=== PATIENT | male | born 1945 | race Caucasian/White ===

== ENCOUNTER 2016-05-15 05:23 | Emergency (ER) | payer MEDICARE, OTHER ==
[2016-05-15] MEDS ORDERED: DEXAMETHASONE 10 MG/ML VIAL PO STA (07:39)
[2016-05-15] MEDS ORDERED: IPRATROPIUM/ALBUTEROL 3 ML NEB INH STA (07:39)
[2016-05-15] MEDS ORDERED: DEXAMETHASONE 10 MG/ML VIAL ONE (07:52)
[2016-05-15] MEDS ORDERED: CHERRY SYRUP 10 ML UDC PO ONE (07:52)
[2016-05-15] MEDS ORDERED: IPRATROPIUM/ALBUTEROL 3 ML NEB INH ONE (07:53)
[2016-05-15] MEDS ORDERED: cefTRIAXone 1 GM in SODIUM CHLORIDE 0.9% MINIBAG 100 ML IV STA (09:01)
[2016-05-15] MEDS ORDERED: cefTRIAXone 1 GM VIAL ONE (09:11)
== END 2016-05-15 11:44 | disposition home or self-care (01) ==
DX: H66.001 Acute suppurative otitis media without spontaneous rupture of ear drum, right ear (principal); R06.02 Shortness of breath; I25.10 Atherosclerotic heart disease of native coronary artery without angina pectoris; I25.2 Old myocardial infarction; Z95.5 Presence of coronary angioplasty implant and graft; Z79.02 Long term (current) use of antithrombotics/antiplatelets
CPT/HCPCS: 36415; 71020; 80053; 83690; 83880; 84484; 85025; 93005; 94640; 96374; 99283; 99284; A9270; J7620

== ENCOUNTER 2016-09-20 07:54 | Outpatient (CLI) | payer MEDICARE, OTHER ==
[2016-09-20 12:06] LABS: BASOPHILS % (AUTO) 0.7 %; EOSINOPHILS # (AUTO) 0.2 10^3/uL (0.0-0.7); EOSINOPHILS % (AUTO) 4.9 %; HCT - HEMATOCRIT 43.6 % (42.0-52.0); LYMPHOCYTES # (AUTO) 0.9 10^3/uL (1.5-3.5); MEAN CORPUSCULAR HEMOGLOBIN 33.7 pg (27.0-31.0); MEAN CORPUSCULAR HGB CONC 34.4 g/dL (32.0-36.0); MEAN CORPUSCULAR VOLUME 98.2 fL (80.0-94.0); MEAN PLATELET VOLUME 10.6 fL (7.4-11.4); MONOCYTES # (AUTO) 0.6 10^3/uL (0.0-1.0); MONOCYTES % (AUTO) 14.2 %; NEUTROPHILS # (AUTO) 2.5 10^3/uL (1.5-6.6); NEUTROPHILS % (AUTO) 59.2 %; NUCLEATED RED BLOOD CELLS AUTO 0.1 /100WBC; RED BLOOD COUNT 4.44 10^6/uL (4.70-6.10); RED CELL DISTRIBUTION WIDTH 12.7 % (12.0-15.0); UNCORRECTED WHITE BLOOD COUNT 4.3 x10^3/uL; WHITE BLOOD COUNT 4.3 x10^3/uL (4.8-10.8)
[2016-09-20 12:26] LABS: ALBUMIN/GLOBULIN RATIO 1.3 (1.0-2.2); BILIRUBIN,TOTAL 0.7 mg/dL (0.2-1.0); BUN - BLOOD UREA NITROGEN 21 mg/dL (6-20); CARBON DIOXIDE - CO2 27 mmol/L (21-32); CHLORIDE 102 mmol/L (101-111); CHOL/HDL RATIO 3.3 (<5.0); CHOLESTEROL 140 mg/dL; CREATININE 0.9 mg/dL (0.6-1.2); GFR - MDRD 83 (>89); GLUCOSE 85 mg/dL (70-100); HDL CHOLESTEROL 43 mg/dL; SODIUM 136 mmol/L (135-145); TOTAL PROTEIN 6.8 g/dL (6.7-8.2); TRIGLYCERIDES 62 mg/dL; VLDL CHOLESTEROL 12 mg/dL
== END 2016-09-20 07:55 | disposition home or self-care (01) ==
LOC: LAB.F 07:54
PROVIDERS: ATTEND Internal Medicine
DX: I25.10 Atherosclerotic heart disease of native coronary artery without angina pectoris (principal); E78.2 Mixed hyperlipidemia; Z79.899 Other long term (current) drug therapy
CPT/HCPCS: 36415; 80053; 80061; 85025

== ENCOUNTER 2017-03-21 08:14 | Outpatient (CLI) | payer MEDICARE, OTHER | END 2017-03-21 08:15 | disposition home or self-care (01) | LOC: DI 08:14 | PROVIDERS: ATTEND Internal Medicine | DX: I25.5 Ischemic cardiomyopathy (principal); I25.2 Old myocardial infarction; I51.7 Cardiomegaly | CPT/HCPCS: 93306 ==

== ENCOUNTER 2017-08-30 09:30 | Outpatient (CLI) | payer MEDICARE, OTHER | END 2017-08-30 09:31 | disposition home or self-care (01) | LOC: DI 09:30 | PROVIDERS: ATTEND Internal Medicine | DX: I25.2 Old myocardial infarction (principal); I25.5 Ischemic cardiomyopathy | CPT/HCPCS: 93306 ==

== ENCOUNTER 2017-10-14 07:41 | Outpatient (CLI) | payer MEDICARE, OTHER ==
[2017-10-14 11:30] LABS: BASOPHILS % (AUTO) 0.9 %; EOSINOPHILS # (AUTO) 0.2 10^3/uL (0.0-0.7); EOSINOPHILS % (AUTO) 5.3 %; HGB - HEMOGLOBIN 14.5 g/dL (14.0-18.0); LYMPHOCYTES # (AUTO) 1.1 10^3/uL (1.5-3.5); MEAN CORPUSCULAR HEMOGLOBIN 33.4 pg (27.0-31.0); MEAN CORPUSCULAR HGB CONC 33.6 g/dL (32.0-36.0); MEAN CORPUSCULAR VOLUME 99.5 fL (80.0-94.0); MEAN PLATELET VOLUME 10.2 fL (7.4-11.4); MONOCYTES # (AUTO) 0.5 10^3/uL (0.0-1.0); MONOCYTES % (AUTO) 12.2 %; NEUTROPHILS # (AUTO) 2.5 10^3/uL (1.5-6.6); NEUTROPHILS % (AUTO) 56.6 %; PLT - PLATELET COUNT 172 10^3/uL (130-450); RED BLOOD COUNT 4.33 10^6/uL (4.70-6.10); WHITE BLOOD COUNT 4.5 x10^3/uL (4.8-10.8)
[2017-10-14 11:51] LABS: ALBUMIN 3.8 g/dL (3.2-5.5); ALBUMIN/GLOBULIN RATIO 1.5 (1.0-2.2); ALKALINE PHOSPHATASE 55 IU/L (42-121); ALT ALANINE AMINOTRANSFERASE 17 IU/L (10-60); AST ASPARTATE AMINOTRANSFERASE 19 IU/L (10-42); BILIRUBIN,TOTAL 0.9 mg/dL (0.2-1.0); BUN - BLOOD UREA NITROGEN 16 mg/dL (6-20); CALCIUM 8.9 mg/dL (8.5-10.3); CARBON DIOXIDE - CO2 30 mmol/L (21-32); CHLORIDE 100 mmol/L (101-111); CHOL/HDL RATIO 3.2 (<5.0); CHOLESTEROL 157 mg/dL; GFR - MDRD 73 (>89); GLUCOSE 88 mg/dL (70-100); HDL CHOLESTEROL 49 mg/dL; LDL CHOLESTEROL,CALCULATED 97 mg/dL; SODIUM 133 mmol/L (135-145); TOTAL PROTEIN 6.4 g/dL (6.7-8.2); VLDL CHOLESTEROL 11 mg/dL
== END 2017-10-14 07:42 | disposition home or self-care (01) ==
LOC: LAB.F 07:41
PROVIDERS: ATTEND Internal Medicine
DX: I25.5 Ischemic cardiomyopathy (principal); I25.10 Atherosclerotic heart disease of native coronary artery without angina pectoris; E78.5 Hyperlipidemia, unspecified
CPT/HCPCS: 36415; 80053; 80061; 83721; 85025

== ENCOUNTER 2018-01-23 08:00 | Outpatient (CLI) | payer MEDICARE, OTHER | END 2018-01-23 08:01 | disposition home or self-care (01) | LOC: LAB.R 08:00 | PROVIDERS: ATTEND Internal Medicine | DX: N39.0 Urinary tract infection, site not specified (principal) | CPT/HCPCS: 87086 ==

== ENCOUNTER 2018-07-23 17:44 | Emergency (ER) | payer MEDICARE, OTHER ==
[2018-07-23 18:10] VITALS: BP 134/64
[2018-07-23] MEDS ORDERED: BUFFERED LIDOCAINE 10 ML SYRINGE SUBQ STA (19:28)
--- NOTE | 2018-07-23 19:30 | ED Physician Documentation ---
PD HPI UPPER EXT INJURY - Stated complaint Stated Complaint: L THUMB LAX - Chief complaint Chief Complaint: Laceration - History obtained from History obtained from: Patient - History of Present Illness Location: Left (He cut the dorsum of his left thumb at home with a knife just prior to arrival on accident. Tetanus is up-to-date.) Review of Systems Constitutional: reports: Reviewed and negative Cardiac: reports: Reviewed and negative Respiratory: reports: Reviewed and negative PD PAST MEDICAL HISTORY - Past Medical History Cardiovascular: [place] - Past Surgical History Past Surgical History: Yes Ortho: Knee replacement, Rotator cuff repair - Present Medications Home Medications: Ambulatory Orders Medication Instructions Recorded Confirmed Losartan [Cozaar] 25 mg PO DAILY 05/15/16 07/23/18 Metoprolol Succinate 12.5 mg PO DAILY 05/15/16 07/23/18 Cephalexin [Keflex] 500 mg PO Q6H #20 capsule 07/23/18 Citalopram Hydrobromide [Celexa] 1 tab ORAL DAILY 07/23/18 07/23/18 Ezetimibe 5 mg ORAL DAILY 07/23/18 07/23/18 LORazepam [Ativan] 1 tab ORAL DAILY 07/23/18 07/23/18 - Allergies Allergies/Adverse Reactions: Allergies Allergy/AdvReac Type Severity Reaction Status Date / Time codeine Allergy Itching Verified 07/23/18 18:10 - Social History Does the pt smoke?: No Smoking Status: Never smoker Does the pt drink ETOH?: Yes Does the pt have substance abuse?: No - Immunizations Immunizations are current?: Yes - POLST Patient has POLST: No PD ED PE NORMAL - Vitals Vital signs reviewed: Yes - General General: Alert and oriented X 3, No acute distress - Extremities Extremities: Other (Over the dorsal surface of the left thumb, mid proximal phalanx there is a V-shaped laceration with the apex pointing proximally without distal neurovascular compromise. Tendon function will be assessed after anesthetic during suture placement.) - Neuro Neuro: Alert and oriented X 3, Normal speech Results - Vitals Vitals: Vital Signs - 24 hr 07/23/18 18:06 Temperature 36.2 C L Heart Rate 45 L Respiratory 16 Rate Blood Pressure 134/64 H O2 Saturation 97 Oxygen O2 Source Room air Procedures - Laceration (location) L thumb Length in cm: 2 Wound type: Into subcut fat Neurovascular status: Sensory intact, Motor intact Tendon involvement: Tendon Injury (On examination basically the wound does go down into the extensor tendon, and there is sort of a davion in the central part of the extensor tendon but with intact strength.) Anesthesia: Lidocaine 1%, With bicarb Wound Preparation: Irrigated copiously NS Skin layer closure: Nylon, Interrupted, Size #-0 - enter number (5-0), Sutures - enter # (7) Other: Patient tolerated well, No complications, Neurovascular intact, Tetanus UTD - Splint (location) L hand Splint applied by: Tech Type of splint: Short arm, Thumb spica Other: Patient tolerated well, No complications, Neurovascular intact PD MEDICAL DECISION MAKING - ED course ED course: 73-year-old gentleman with nondominant dorsal thumb laceration of the left hand, the extensor tendon is lacerated just a little bit. The middle part is kind afraid, not quite through and through in the radial and ulnar sides are completely intact. It was washed out thoroughly and the skin was closed. He is placed in an Thumb spica splint in extension. Case was discussed by phone with Dr. Pathak, the on-call orthopedic surgeon who agrees with management and will see him in the clinic. Departure - Departure Disposition: 01 Home, Self Care Clinical Impression: Finger laceration involving tendon Qualifiers: Encounter type: initial encounter Qualified Code(s): S61.219A - Laceration without foreign body of unspecified finger without damage to nail, initial encounter Condition: Good Record reviewed to determine appropriate education?: Yes Instructions: ED Laceration Hand Follow-Up: Tejas Pathak MD [Provider Admit Priv/Credential] - Prescriptions: Cephalexin [Keflex] 500 mg PO Q6H #20 capsule Comments: Call the orthopedics office tomorrow for an appointment within the week. Return for new worsening symptoms. Keep the splint on and dry, do not remove it. Do not work with that hand.
[2018-07-23] MEDS ORDERED: cephALEXin 250 MG CAPSULE PO STA (19:49)
== END 2018-07-23 20:37 | disposition home or self-care (01) ==
LOC: ED 17:44
DX: S61.012A Laceration without foreign body of left thumb without damage to nail, initial encounter (principal); W26.0XXA Contact with knife, initial encounter; I25.2 Old myocardial infarction; Z96.659 Presence of unspecified artificial knee joint
CPT/HCPCS: 12001; 99283; A9270

== ENCOUNTER 2018-08-26 08:00 | Outpatient (CLI) | payer MEDICARE, OTHER | END 2018-08-26 23:59 | disposition home or self-care (01) | LOC: LAB.R 08:00 | PROVIDERS: ATTEND Registered Nurse | DX: R10.9 Unspecified abdominal pain (principal) | CPT/HCPCS: 87177; 87209 ==

== ENCOUNTER 2018-10-08 08:04 | Outpatient (CLI) | payer MEDICARE, OTHER | END 2018-10-08 08:05 | disposition home or self-care (01) | LOC: DI 08:04 | PROVIDERS: ATTEND Internal Medicine | DX: I25.5 Ischemic cardiomyopathy (principal); I51.7 Cardiomegaly | CPT/HCPCS: 93306 ==

== ENCOUNTER 2019-01-20 19:30 | Emergency (ER) | payer MEDICARE, OTHER ==
--- NOTE | 2019-01-20 20:37 | ED Physician Documentation ---
PD HPI UPPER EXT INJURY - Stated complaint Stated Complaint: LEFT SHOULDER INJURY - Chief complaint Chief Complaint: Ext Problem - History obtained from History obtained from: Patient - History of Present Illness Location: Left, Shoulder Type of injury: Fall (he states he slipped and fell and landed to left shoulder, with pain on ROM, tushar reaching behind toward his back pocket and lifting arm to 90 degrees.) Timing - onset: How many hours ago (1), Today Timing - details: Abrupt onset, Still present Improved by: Rest Worsened by: Moving Associated symptoms: No: Weakness, Numbness Contributing factors: No: Anticoagulated Recently seen: Not recently seen Review of Systems Skin: denies: Abrasion (s), Laceration (s) Musculoskeletal: reports: Joint pain (left shoulder posterolaterally) Neurologic: denies: Focal weakness, Numbness PD PAST MEDICAL HISTORY - Past Medical History Past Medical History: Yes Cardiovascular: [place] Musculoskeletal: Other - Past Surgical History Past Surgical History: Yes Ortho: Knee replacement, Rotator cuff repair - Present Medications Home Medications: Ambulatory Orders Medication Instructions Recorded Confirmed Losartan [Cozaar] 25 mg PO DAILY 05/15/16 07/23/18 RX: Metoprolol Succinate 12.5 mg PO DAILY 05/15/16 07/23/18 Cephalexin [Keflex] 500 mg PO Q6H #20 capsule 07/23/18 RX: Citalopram Hydrobromide 1 tab ORAL DAILY 07/23/18 07/23/18 [Celexa] RX: Ezetimibe 5 mg ORAL DAILY 07/23/18 07/23/18 RX: LORazepam [Ativan] 1 tab ORAL DAILY 07/23/18 07/23/18 Hydrocodone/Acetaminophen [Millry 1 each PO Q6H PRN #15 tablet 01/20/19 5-325 Tablet] RX: Naproxen 500 mg PO BID #20 tablet 01/20/19 - Allergies Allergies/Adverse Reactions: Allergies Allergy/AdvReac Type Severity Reaction Status Date / Time codeine Allergy Itching Verified 01/20/19 19:37 - Social History Does the pt smoke?: No Smoking Status: Never smoker Does the pt drink ETOH?: Yes Does the pt have substance abuse?: No - Immunizations Immunizations are current?: Yes - POLST Patient has POLST: No PD ED PE NORMAL - Vitals Vital signs reviewed: Yes - General General: Alert and oriented X 3, Well developed/nourished, Other (Prior rotator cuff surgery on the right and has done well with it. He exercises regularly. He appears uncomfortable and is guarding motion of his left shoulder protected to his side.) - HEENT HEENT: Atraumatic - Neck Neck: Supple, no meningeal sign, No bony TTP, No adenopathy - Cardiac Cardiac: RRR, No murmur - Respiratory Respiratory: Clear bilaterally - Derm Derm: Normal color, Warm and dry - Extremities Extremities: Other (The left shoulder does not show any obvious deformity. There is tenderness along the posterior and lateral aspect. The clavicle is not tender. He has guarded range of motion. He is able to flex and extend supinate and internally rotate and externally rotate. These do not cause too much pain. Passive range of motion of the shoulder does not hurt much. There is no gross laxity noted.) Results - Vitals Vitals: Vital Signs - 24 hr 01/20/19 01/20/19 19:32 21:11 Temperature 36.4 C L 36.5 C Heart Rate 65 56 L Respiratory 16 16 Rate Blood Pressure 138/65 H 125/79 O2 Saturation 98 95 Oxygen O2 Source Room air - Rads (name of study) left shoulder Radiology: Prelim report reviewed (No fracture or dislocation.), See rad report Departure - Departure Disposition: 01 Home, Self Care Clinical Impression: Accidental fall Qualifiers: Encounter type: initial encounter Qualified Code(s): W19.XXXA - Unspecified fall, initial encounter Left shoulder strain Qualifiers: Encounter type: initial encounter Qualified Code(s): S46.912A - Strain of unspecified muscle, fascia and tendon at shoulder and upper arm level, left arm, initial encounter Condition: Stable Record reviewed to determine appropriate education?: Yes Instructions: ED Sprain Shoulder Follow-Up: Dawit Avina MD [Primary Care Provider] - Tejas Pathak MD [Provider Admit Priv/Credential] - Prescriptions: Hydrocodone/Acetaminophen [Millry 5-325 Tablet] 1 each PO Q6H PRN #15 tablet PRN Reason: Pain RX: Naproxen 500 mg PO BID #20 tablet Comments: Sling for the arm and shoulder for the next week or 2. Gentle range of motion several times a day just hanging down in circles and back and forth so the shoulder does not freeze/adhesions. Use some anti-inflammatories such as naproxen twice daily for the next 7 to 10 days. Add Tylenol or hydrocodone as needed for pain. Follow-up with orthopedics within the next week or so to reevaluate the shoulder once the pain is improved in the initial injury and swelling. Concern would be for some rotator cuff injury but harder to assess when its hurting. Discharge Date/Time: 01/20/19 21:18
--- NOTE | 2019-01-20 20:41 | XRAY Report ---
Reason: pain s/p fall landing on shoulder Procedure Date: 01/20/2019 Accession Number: [id number] / [id number] Procedure: XR - Shoulder 3 View LT CPT Code: FULL RESULT: EXAM: LEFT SHOULDER RADIOGRAPHY EXAM DATE: 01/20/2019 07:55 PM. CLINICAL HISTORY: Trauma COMPARISON: None. TECHNIQUE: 3 views. FINDINGS: Bones: No acute fracture or suspicious osseous lesion. Joints: Moderate acromioclavicular and mild glenohumeral joint osteoarthritis. Soft tissues: The visualized hemithorax is unremarkable. No soft tissue swelling. IMPRESSION: No acute osseous abnormality. [facility]
[2019-01-20] MEDS ORDERED: IBUPROFEN 600 MG TABLET PO STA (20:55)
[2019-01-20] MEDS ORDERED: HYDROcod/ACETAM 5/325 MG TABLET PO STA (20:55)
[2019-01-20] MEDS ORDERED: HYDROcod/ACET 5/325 Prepack 4 PO STA (20:55)
[2019-01-20 21:12] VITALS: BP 125/79
== END 2019-01-20 21:18 | disposition home or self-care (01) ==
LOC: ED 19:30
DX: S46.912A Strain of unspecified muscle, fascia and tendon at shoulder and upper arm level, left arm, initial encounter (principal); W10.2XXA Fall (on)(from) incline, initial encounter; Y93.89 Activity, other specified
CPT/HCPCS: 73030; 99283; 99284; A9270

== ENCOUNTER 2019-02-04 10:10 | Outpatient (CLI) | payer MEDICARE, OTHER ==
--- NOTE | 2019-02-04 17:06 | MRI Report ---
Reason: LT SHOULDER PAIN, FELL ONTO LT SHOULDER Procedure Date: 02/04/2019 Accession Number: [id number] / [id number] Procedure: MRI - Shoulder LT W/O CPT Code: FULL RESULT: EXAM: LEFT SHOULDER MRI WITHOUT CONTRAST EXAM DATE: 02/04/2019 11:24 AM. CLINICAL HISTORY: Left shoulder pain after fall. COMPARISON: 01/20/2019 radiograph. TECHNIQUE: Multiplanar, multisequence T1-weighted and fluid-sensitive sequences of the shoulder without contrast. Other: None. FINDINGS: Acromioclavicular Region: The acromion is type I. Severe acromioclavicular osteoarthropathy is evidenced by bony hypertrophy, periarticular marrow edema, and periarticular cyst formation. The coracoacromial and coracoclavicular ligaments are intact. A moderate amount of fluid is in the subacromial/subdeltoid bursa. Glenohumeral Region: No subluxation. A mild glenohumeral joint effusion is present. The articular cartilage is unremarkable. The glenohumeral ligaments and joint capsule are unremarkable. Bone Marrow: No fracture, marrow edema or bone lesions. Labrum: The labrum is unremarkable on this nonarthrographic study. Musculature/Rotator Cuff: Subscapularis tendon has a partial-thickness, joint-sided tear of the mid fibers that is 1.9 cm in height, 50% in thickness, and 3.3 cm in length. Closer to the distal insertion, the tear has a focal area of 90% thickness tearing (series 701, image 7). The supraspinatus, infraspinatus and teres minor tendons are intact. No edema or fatty atrophy. Biceps Tendon: The biceps tendon is medially dislocated on the bicipital groove. Other: The subcutaneous tissues are unremarkable. IMPRESSION: 1. Severe acromioclavicular osteoarthropathy . 2. Moderate subacromial/subdeltoid bursitis. 3. Large partial tear of the subscapularis tendon. 4. Medial dislocation of the biceps tendon. [facility]
== END 2019-02-04 10:11 | disposition home or self-care (01) ==
LOC: DI 10:10
PROVIDERS: ATTEND Family Medicine
DX: M19.012 Primary osteoarthritis, left shoulder (principal); M75.52 Bursitis of left shoulder; S46.812A Strain of other muscles, fascia and tendons at shoulder and upper arm level, left arm, initial encounter